=== PATIENT | female | born 1955 | race Caucasian/White ===

== ENCOUNTER → 2021-04-08 | Outpatient (CLI) | payer OTHER, MEDICARE ==
[~2021-04-08] MED LIST: ASA81BEC PO; EFFIENT10 MG PO; LEVO-T25 MCG PO; LOSARTAN-HCTZ1 EAC3 PO; ROSUVASTATIN CA20 MG PO; TOPROL XL100 MG PO
== END ==
LOC: SJCVCIMAG 08:55
PROVIDERS: ATTEND Internal Medicine Cardiovascular Disease
DX: I45.10 Unspecified right bundle-branch block (principal); R06.00 Dyspnea, unspecified; R94.39 Abnormal result of other cardiovascular function study; I10 Essential (primary) hypertension; E78.5 Hyperlipidemia, unspecified; E11.9 Type 2 diabetes mellitus without complications; Z79.82 Long term (current) use of aspirin; Z79.899 Other long term (current) drug therapy; Z87.891 Personal history of nicotine dependence

== ENCOUNTER 2021-04-13 07:45 | Observation (INO) | payer OTHER, MEDICARE ==
[~2021-04-13] VITALS: Ht 167.6 cm; Wt 97.5 kg
[2021-04-13 08:24] VITALS: BP 135/73
[2021-04-13] MEDS ORDERED: LOSARTAN-HCTZ1 EAC3 PO (08:41)
[2021-04-13] MEDS ORDERED: LEVO-T25 MCG PO (08:41)
[2021-04-13] MEDS ORDERED: ASA81BEC PO (08:41)
[2021-04-13] MEDS ORDERED: TOPROL XL100 MG PO (08:42)
[2021-04-13] MEDS ORDERED: ROSUVASTATIN CA20 MG PO (08:42)
--- NOTE | 2021-04-13 12:52 | CATHLAB ---
[facility] [place] [address] INVASIVE PROCEDURE REPORT Name: ROSANNA SHAH Room #: REG JULITA DavisDrewSmita.#: [id number] Admission: 04/13/21 Attend Phys: Dariusz Joiner MD Discharge: Date of : 55 Report #: [id number] THIS REPORT FOR: cc: [facility] - Family physician unknown Dariusz Joiner MD ~ APPROVED REPORT Study performed: 04/13/2021 08:55:19 Patient Details Patient Status: Out-Patient Room #: The patient is a 65 year-old female Event Personnel Dariusz Joiner Application Development Project Manager, Neeru Hanson RN RN, Ruby Chung RT(R)() Monitor, Erica White RTR Scrub Procedures Performed Art Access - R femoral artery* Left Heart Cath w/or w/o Coronaries 4727466 [facility] w/wo Plasty Single LAD 998332 [facility] Place w/wo Plasty Single RCA 513622 Hemostasis w/ Mynx 41312 Initial Mod Sed Same Phys/QHP Gr5y 521922 88056 Mod Sed Same Phys/QHP Ea 545845 Indication Unstable angina , Positive stress test, Chest pain Risk Factors Hypercholesterolemia, Hypertension, Tobacco History () Procedure Narrative The Right Groin^ was infiltrated with 1% Lidocaine subcutaneous anesthesia. A PINNACLE 4FR Sheath #[id number] sheath was inserted into the RFA 4F^. Coronary angiography was performed using coronary diagnostic catheters. The right coronary system was accessed and visualized with a JR4 catheter. The left coronary system was accessed and visualized with a JL4 catheter. The left ventricle was accessed and visualized with a JR4 catheter. The patient tolerated the procedure well and there were no complications associated with the procedure. There was no hematoma. Intraoperative Conscious Sedation Fentanyl 100 mcg Versed [address] [address] INVASIVE PROCEDURE REPORT Name: ROSANNA SHAH Room #: REG [facility]#: [id number] Admission: 04/13/21 Attend Phys: Dariusz Joiner MD Discharge: Date of : 55 Report #: [id number] Fluoro Time: 23.37 minutes Dose: DAP 43365.00 cGycm2 Contrast Type and Amount: Omnipaque 250 ml Coronary Angiography The patient's coronary anatomy is right dominant. Diagnostic Cath Left Main The left main artery is a large-caliber vessel, patent with no flow-limiting lesions. LAD The LAD is a moderate-sized caliber vessel, traverses the anterior wall and wraps around the apex. There is a severe stenosis, 80% in the midsegment just after the takeoff of the first diagonal and septal perforators. Diagonal 1 There is a moderate-sized caliber vessel, with mild disease proximally. Diagonal 2 There is a moderate-sized caliber vessel, patent with no flow-limiting lesions. Circumflex Supplies 1 OM vessel. OM1 This is a small to moderate-sized caliber vessel, with moderate disease in the proximal segment. Right Coronary The RCA is a moderate to large caliber vessel, with a severe obstruction in the proximal segment, 95%. R PDA There is a moderate-sized caliber vessel, patent with no flow-limiting lesions. RPLV There is a moderate-sized caliber vessel, patent with no flow-limiting lesions. Left Ventriculography Left Ventriculography was not performed. Ejection Fraction was >55% based off patient's Echocardiogram. An LVEDP was measured and there is no gradient across the outflow tract. Hemodynamics The aortic pressure is 135/75 mmHg with a mean of 91 mmHg. The left ventricular pressure is 134/11 mmHg with a mean of mmHg. The left ventricular end diastolic pressure is 17 mmHg. PCI Technique Lesion Percutaneous coronary intervention was performed on the proximal right coronary artery. The lesion stenosis prior to intervention was 95% with DAVION 3 flow. A VISTA 6FR JR 4 #[id number] Guide Catheter was used to engage the ostium. A Luge Wire .014 x 182CM #527212 Interventional Guidewire was used to cross the lesion. [facility] [address] [place] [address] INVASIVE PROCEDURE REPORT Name: ROSANNA SHAH Room #: REG CL [facility]#: [id number] Admission: 04/13/21 Attend Phys: Dariusz Joiner MD Discharge: Date of : 55 Report #: [id number] BALLOON DILATION A Balloon catheter Euphora RX 2.5 x 12 #[id number] was inserted and inflated up to 10.00atm for 15seconds. Additional Inflation: 8.00atm for 10seconds. STENT DEPLOYMENT A stent XIENCE WILLIE RX 3.25 X 33 #[id number] was inserted and inflated up to 14.00atm for 27seconds. POST STENT DEPLOYMENT BALLOON DILATION A Balloon catheter NC TREK 3.5 x 15 #[id number] was inserted and inflated up to 6.00atm for 12seconds. Additional Inflation: 18.00atm for 18seconds. Additional Inflation: 18.00atm for 16seconds. Final angiography reveals 5 % stenosis with DAVION 3 flow. PCI Technique Lesion 2 Percutaneous Coronary Intervention was performed on the mid left anterior descending artery segment. The lesion stenosis prior to intervention was 80% with DAVION 3 flow. A VISTA 6FR XB 3.5 #570226 Guide Catheter was used to engage the ostium. A Luge Wire .014 x 182CM #[id number] Interventional Guidewire was used to cross the lesion. Balloon Dilation A Balloon catheter Euphora RX 2.5 x 12 #[id number] was inserted and inflated up to 8.00atm for 16seconds. Additional Inflation: 8.00atm for 12seconds. Stent Deployment A stent XIENCE WILLIE RX 3.0 X 12 #[id number] was inserted and inflated up to 14.00atm for 18seconds. A XIENCE WILLIE RX 2.75MM X8MM was inserted just distal to the 3.0 mm stent but overlapping and inflated up 14 beatriz for 22 seconds. Additional Inflation: 18 beatriz for 11 seconds. Post Stent Deployment Balloon Dilation A Balloon catheter TREK NC RX 3.0 X 8 #[id number] was inserted and inflated up to 18.00atm for 15seconds. Additional Inflation: 14.00atm for 9seconds. Final angiography reveals 0 % stenosis with DAVION 3 flow. Conclusion 1. PCI was performed involving angioplasty and placement of a [facility] [address] [place] [address] INVASIVE PROCEDURE REPORT Name: ROSANNA SHAH Room #: REG [facility]#: [id number] Admission: 04/13/21 Attend Phys: Dariusz Joiner MD Discharge: Date of : 55 Report #: [id number] drug-eluting stent into the proximal RCA stenosis. 2. PCI was performed involving angioplasty and placement of drug-eluting stents into the mid LAD stenosis. 3. There is moderate disease in the obtuse marginal artery. 4. There is normal LV systolic function. 5. Recommend dual antiplatelet therapy and aggressive risk factor management. <ELECTRONICALLY SIGNED> By: Dariusz Joiner MD 04/13/21 1252 1252 125 Dariusz Joiner MD /INF
--- NOTE | 2021-04-13 16:28 | EKG ---
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
[2021-04-13 20:52] VITALS: BP 139/68
[2021-04-14 05:41] VITALS: BP 120/72
[2021-04-14 06:48] LABS: HEMATOCRIT 35.4 % (37.0-47.0); HEMOGLOBIN 11.8 gm/dL (12.0-15.0); MCH 31.2 pg (26.0-34.0); MCHC 33.4 g/dL (28.0-37.0); MCV 93.3 fL (80.0-100.0); RBC 3.79 mil/uL (4.20-5.00); RDW 13.6 % (10.5-14.5); WBC 5.9 thou/uL (4.0-11.0)
[2021-04-14 07:10] LABS: CALCIUM 9.2 mg/dL (8.5-10.1)
[2021-04-14] MEDS ORDERED: EFFIENT10 MG PO (07:42)
[2021-04-14 07:50] VITALS: BP 113/69
--- NOTE | 2021-04-14 09:06 | NUR ---
PT OFF BR AND UP ADLIB IN ROOM, VSS, HR SB AND C/O SOA PLACED ON 2L/NC, RIGHT GROIN WITH MYNX CLOSURE REMAINS CDI, NO C/O PAIN, WILL CON'T TO MONITOR PPOC
[2021-04-14 12:05] VITALS: BP 131/41
[2021-04-14 15:45] VITALS: BP 124/66
--- NOTE | 2021-04-14 15:54 | EKG ---
[address] [address] ELECTROCARDIOGRAM REPORT Name: ROSANNA SHAH Room #: 216-[facility] M..#: [id number] Admission: 04/13/21 Attend Phys: Dariusz Joiner MD Discharge: Date of : 55 Report #: [id number] [facility] Test Date: 2021-04-14 Test Time: 08:51:43 Pat Name: ROSANNA SHAH Department: Room: 216 Gender: F Credit Risk Review Officer: REBEKAH : 1955 Requested By: Dariusz Joiner Order Number: [id number] : Fredy Mendoza Measurements Intervals [place] Rate: 69 P: 40 MN: 180 QRS: -54 QRSD: 153 T: 2 QT: 419 QTc: 449 Interpretive Statements Sinus rhythm Probable left atrial enlargement Right bundle branch block Inferior infarct, old Baseline wander in lead(s) V1,V3 Compared to ECG 04/13/2021 12:41:27 Myocardial infarct finding now present Sinus arrhythmia no longer present Electronically Signed On 04-14-2021 15:54:37 CDT by Fredy Mendoza [email or web address] <ELECTRONICALLY SIGNED> By: Fredy Mendoza MD, FACC 04/14/21 1554 0851 0851 Fredy Mendoza MD, [facility] /EPI
[2021-04-14 19:18] VITALS: BP 122/55
[2021-04-15 03:45] VITALS: BP 108/60
[2021-04-15 05:53] LABS: HEMATOCRIT 38.8 % (37.0-47.0); HEMOGLOBIN 13.4 gm/dL (12.0-15.0); MCH 32.2 pg (26.0-34.0); MCHC 34.6 g/dL (28.0-37.0); RBC 4.17 mil/uL (4.20-5.00); RDW 13.7 % (10.5-14.5); WBC 9.1 thou/uL (4.0-11.0)
--- NOTE | 2021-04-15 06:13 | NUR ---
ASSUME CARE 1900. PT/VITALS STABLE. DENIES ANY PAIN. TOLERATES ACTIVITY WELL. ASSESSMENT CHARTED. PROGRESSING WELL WITH POC. RIGHT GROIN SITE CDI. SR ON MONITOR. NO DISTRESS NOTED. PLAN IS POSSIBLE DISCHARGE TODAY. WILL CONTINUE TO MONITOR AND FOLLOW WITH POC
[2021-04-15 06:14] LABS: CALCIUM 9.6 mg/dL (8.5-10.1); CREATININE 1.3 mg/dL (0.6-1.0); POTASSIUM 3.4 mmol/L (3.5-5.1)
[2021-04-15 11:16] VITALS: BP 118/64
[2021-04-15 13:35] VITALS: BP 118/64
--- NOTE | 2021-04-15 14:12 | NUR ---
ASSESSMENT CHARTED - MEDS PER TRUNG SMALL DIET AND FLUIDS. NO CO'S OF PAIN OR NAUSEA. PT UP AD BROOKE IN ROOM. GROIN SITE C/D/I. PT HOME THIS AFTERNOON - INSTRUCTION RE HOME MEDS/ CARE AND FOLLOW UP GIVEN. STATED UNDERSTANDING OF INSTRUCTION GIVEN. LEFT UNIT VIA WHEELCHAIR - HOME VIA PVT VEHICLE ACCOMAPNIED BY FRIEND NO CO'S AT TIME OF D/C/.
== END 2021-04-15 14:05 | disposition home or self-care (01) ==
LOC: CATH 07:45 → 2N 09:52 → CATH 11:04 → 2N 16:36
PROVIDERS: ADMIT Internal Medicine Cardiovascular Disease; ATTEND Internal Medicine Cardiovascular Disease
DX: I25.110 Atherosclerotic heart disease of native coronary artery with unstable angina pectoris (principal); Z20.822 Contact with and (suspected) exposure to COVID-19; I10 Essential (primary) hypertension; E78.5 Hyperlipidemia, unspecified; E05.00 Thyrotoxicosis with diffuse goiter without thyrotoxic crisis or storm; R00.1 Bradycardia, unspecified; F17.200 Nicotine dependence, unspecified, uncomplicated

== ENCOUNTER → 2021-07-30 | Outpatient (CLI) | payer OTHER, MEDICARE | LOC: SJCVCIMAG 09:05 | PROVIDERS: ATTEND Internal Medicine Cardiovascular Disease | DX: R94.31 Abnormal electrocardiogram [ECG] [EKG] (principal); I45.10 Unspecified right bundle-branch block; I25.10 Atherosclerotic heart disease of native coronary artery without angina pectoris; I11.9 Hypertensive heart disease without heart failure; E78.00 Pure hypercholesterolemia, unspecified; E11.9 Type 2 diabetes mellitus without complications; F17.290 Nicotine dependence, other tobacco product, uncomplicated; Z79.82 Long term (current) use of aspirin; Z79.899 Other long term (current) drug therapy; E78.5 Hyperlipidemia, unspecified; Z82.49 Family history of ischemic heart disease and other diseases of the circulatory system ==